=== PATIENT | female | born 1965 | race Caucasian/White ===

== ENCOUNTER 2025-06-29 20:08 | Emergency (ER) | payer MEDICAID ==
[~2025-06-29] VITALS: Ht 162.6 cm; Wt 72.7 kg
[2025-06-29 20:10] VITALS: BP 127/82; PULSE 88; O2SAT 95
--- NOTE | 2025-06-29 20:41 | RADIOLOGY REPORT ---
CLINICAL INDICATION: left ankle pain TECHNIQUE: ANKLECPLTDI ANKLE, COMPLETE(3VW MIN) Comparison: None FINDINGS/IMPRESSION: : Nondisplaced transverse fracture at the inferior tip of the lateral malleolus. Alignment is anatomic. Ankle mortise is congruent and talar dome intact.
--- NOTE | 2025-06-29 20:45 | Physician Documentation ---
History of Present Illness ~ Chief Complaint: Mechanical Fall Stated Complaint: FALL Time Seen by MD: 20:36 Primary Medical Doctor: [facility] This is a 59-year-old female who comes in for evaluation of left ankle pain and swelling in the right knee pain and swelling after she got tripped up by her dog. She had fallen onto her right knee, twisted left ankle, and a brace her right elbow. She reports an immediate onset sharp nonradiating pain in her left ankle, right knee, worse with a any range of motion and palpation. No particular palliating factors other than position of comfort. Did not attempt to treat it with a any medication. Denies head strike, denies blood thinners, denies loss of consciousness. Denies any concerns for tobacco, alcohol or illicit substances use Tetanus within 5 Years?: No (unk) Medication Reconciliation Allergies: Coded Allergies: Penicillins (Verified Allergy, Unknown, 06/29/25) lidocaine (Unverified Adverse Reaction, Unknown, extreme anxiety, 06/29/25) Past Medical History Past Medical History: Headache, Migraine, Chronic Back Pain Past Surgical History: orthopedic surgeries Other Past Family History: NONE REPORTED Alcohol Use: Occasionally Drug Use: none Review of Systems ROS 10 point review of systems was performed and unless noted above in HPI is negative for acute process/complaint. Physical Exam Vital Signs: Temperature: 97.2, Source: Temporal, Heart Rate: 88, Respiratory Rate: 16, BP: 127/82, Pulse Oximetry: 95, Weight: 72.700 Physical Exam Physical examination: GENERAL: Awake, alert, oriented, GCS 15, mild pain related distress, non-toxic appearing, answers questions, follows commands appropriately. Examined in bed 19 HEENT: Atraumatic, normocephalic, pupils equal, extraocular muscles intact Active gross movements, sclerae anicteric, mucus membranes moist, no stridor. NECK: Midline, no JVD CARDIOVASCULAR: Good skin perfusion without evidence of pallor, mottling. PULMONARY: Nonlabored, symmetric chest rise, no audible wheezing, no accessory muscle use, no respiratory distress, speaking in full sentences. GASTROINTESTINAL: Not distended. NEUROLOGIC: Lucid with normal mental status. Normal facial symmetry. Moves all extremities symmetrically and with purpose. No truncal ataxia. Speech is fluid without evidence of dysarthria or aphasia, no focal deficits appreciated. EXTREMITIES: Acute deformities Skin: warm, dry PSYCHIATRIC: Normal affect, normal insight, normal concentration. Focused exam: [There is abrasion to the right knee, no active bleeding. Left ankle was examined. There is significant lateral malleolus swelling, tenderness to palpation, range of motion limited by pain. Neurovascularly intact distally. Right knee was examined. There is tenderness to palpation over medial joint line, no crepitus, mild swelling, no bruising, neurovascularly intact distally.] Progress Results/Orders Results/Orders Orders - GEN BARRETT DO Ankle, Complete(3vw Min) (06/29/25 20:15) Knee 3 Vws (06/29/25 20:38) Completed Orders - GEN BARRETT DO Ankle, Complete(3vw Min) (06/29/25 20:15) Knee 3 Vws (06/29/25 20:38) Hydrocodone/Apap 5/325mg Tab ([place] 5/32 (06/29/25 20:40) Ketorolac Trometh 30mg/Ml Vial (Toradol (06/29/25 20:40) Medications Received in ER Medications (Trade) Dose Ordered Sig/Maira Route PRN Reason Start Time Stop Time Status Last Admin Dose Admin ([place] 5/325mg tablet) 1 tab ONCE ONCE PO 06/29/25 20:40 06/29/25 20:41 DC 06/29/25 21:02 1 TAB (Toradol inj. 30mg/ml) 30 mg ONCE ONCE IM 06/29/25 20:40 06/29/25 20:41 DC 06/29/25 21:01 30 MG Vital Signs 06/29/25 06/29/25 06/29/25 20:10 21:01 21:02 Temp 97.2 Pulse 88 Resp 16 16 16 B/P (MAP) 127/82 Pulse Ox 95 Medical Decision Making Additional information obtaine: N/A Findings Facility Status: ED Holds, [facility] process The plan was discussed with the patient, who demonstrates clear understanding of the plan and is in agreement with the plan unless otherwise noted in the chart. All questions have been answered, all concerns were addressed unless otherwise documented. I was available throughout their ED stay for frequent reassessment and questions. Differential Diagnoses (considered and possible or likely): [Ground level fall, acute traumatic pain, left ankle contusion versus sprain versus fracture versus dislocation, right knee contusion versus fracture versus dislocation versus patellar dislocation/fracture, right elbow contusion. Unlikely fracture or dislocation of right elbow as she has full range of motion.] ??Differential Diagnoses (considered and unlikely, not requiring evaluation currently): [Patient adamantly denies closed head injury] MDM Data Please see HPI for the following: Independent Historians and external Records Review. Historian: [Patient] Independent Historians: ?[None] Medication Management: [Reviewed medication list] Social History and determinants: [Reviewed] Please see the body of the note for the following: Any independent interpretations of ECG, imaging studies. All vitals signs/haemodynamics, ordered tests were independently reviewed and interpreted by myself. Nursing triage complaint and vitals reviewed, additional nursing notes were reviewed as available and I agree unless otherwise noted or documented in contradiction in the chart Vital Signs: Independently reviewed Labs: Independently interpreted Imaging: Independently interpreted Old Medical Records: Independently reviewed, see [facility] for relevant summary and information Additionally notably showing: [Hemodynamically stable. X-ray shows lateral malleolar fracture, nondisplaced. Preserved with the alignment. A knee x-ray shows no acute fracture.] Tests considered but not ordered include: [Hematologic workup has been considered but does not appear to be necessary given mechanical nature of the injury.] Social Determinants of Health Impact: Patient was evaluated in [facility] [place] healthcare due to below par ratio of patient to medical providers. [] Comorbid Conditions Impacting Present Evaluation and Care/Treatment: [None rep orted by the patient] Management Discussions with other Healthcare Providers: [None] Treatment and Disposition Medication Management (Given or considered): [Pain management]. See EMR for details Consideration for Hospitalization/Escalation/Deescalation of Care: Admission for observation has been considered, [however the patient is able to tolerate p.o., their symptoms are controlled, they are able to rely on oral medications, and their chief complaint/diagnosis can be managed on outpatient basis.] ?ED Course:?[The patient was placed in a splint] ?Shared decision making:?[Patient is hemodynamically stable for discharge home with follow with their primary care provider. [ ] Specific and cautious return precautions provided and discussed with full understanding. Any incidental findings were also discussed and follow up recommendations given. [] All questions answered. Patient/family were able to verbalize back return precautions. Patient/family agree to plan. Copies of imaging and laboratory studies were provided.] Code status:?FULL Please see the full Electronic Medical Record for full details of nursing documentation, medications list, other records of complete past medical history and conditions, vital signs, laboratory studies, and any radiologic study interpretations by radiologists. Portions of this note were completed using [employer] dictation software and as a result there may exist minor errors in spelling. I have reviewed elements of past family and social history and agree as included in note. Differential Dx:Considerations: Include: Fracture(s), Abrasion(s), Contusion(s); Unlikely: Closed head injury, Cardiac injury, Intraabdominal injury, Pneumothorax, Cerebral contusion, Pulmonary contusion, Spine injury, Tracheal injury, Urological injury, Vascular injury, Foreign body(s), Hematoma(s), Laceration(s), Encephalopathy Departure Disposition: HOME / SELF CARE / HOMELESS Impression: Primary Impression: Ground-level fall Additional Impressions: Acute traumatic pain Contusion of right knee Closed left ankle fracture Abrasion of right elbow Condition: Improved Discharge Instructions: Ankle Fracture Additional Instructions: Please follow-up with the orthopedic surgeon of your choice. Referrals: NO PRIMARY CARE PROVIDER (PCP) Prescriptions Naloxone HCl (Narcan) 4 Mg/Actuation [place] 1 SPRAYS BOTHNARES ONCE for 14 Days, #1 EA 0 Refills Use for opioid overdose/respiratory depression only. Do not use routinely Prov: GEN BARRETT DO 06/29/25 ONDANSETRON ODT 4mg tablet (ONDANSETRON ODT) 4 Mg Tab.rapdis 1 TAB PO Q6H PRN PRN for nausea/vomiting for 4 Days, #16 TAB 0 Refills Prov: GEN BARRETT DO 06/29/25 Naproxen (Naproxen) 375 Mg Tablet 1 TAB PO Q12H for pain for 30 Days, #60 TAB 0 Refills with food Prov: GEN BARRETT DO 06/29/25 Hydrocodone Bit/Acetaminophen 5/325 MG ([place] 5/325 MG) 5 Mg/325 Mg Tablet 1 TAB PO Q6H PRN for pain for 7 Days, #28 TAB Prov: GEN BARRETT DO 06/29/25 Education Educated: Patient Educated regarding: diagnosis, treatment, prognosis, need for follow up Signature Scribe Signature: No scribe Attestation: Date: Jun 29, 2025 Time: 20:44 This note accurately reflects clinical decisions, work performed by myself, DO NENA Vega NICHOLAS M DO Jun 29, 2025 20:45
[2025-06-29] MEDS: ketorolac trometh 30MG/ML vial 30 MG/ML VIAL IM ONE (21:01)
[2025-06-29 21:02] VITALS: RESP 16
[2025-06-29] MEDS: HYDROcodone/acetaminophen 5mg/325mg tablet PO ONE (21:02)
--- NOTE | 2025-06-29 21:15 | RADIOLOGY REPORT ---
EXAM: DI KNEE 3 VWS INDICATION: fall, pain TECHNIQUE: 3 views of the right knee COMPARISON: None FINDINGS/IMPRESSION: No radiographic evidence of an acute osseous abnormality. There is no acute fracture, osseous malalignment, or aggressive focal osseous lesion. At least moderate lateral weight-bearing compartment joint space loss. Small suprapatellar knee joint effusion. Diffusely decreased bone mineral density.
[2025-06-29] MEDS ORDERED: HYDR-3965 PO (21:36)
[2025-06-29] MEDS ORDERED: ONDA-243 PO (21:36)
[2025-06-29] MEDS ORDERED: NALO4SPR BOTHNARES (21:36)
[2025-06-29] MEDS ORDERED: NAPR-1166 PO (21:36)
[2025-06-29 21:38] VITALS: TEMP 97.2
== END 2025-06-29 21:47 | disposition home or self-care (01) ==
LOC: ER 20:09
DX: S82.892A Other fracture of left lower leg, initial encounter for closed fracture (principal); S80.01XA Contusion of right knee, initial encounter; S50.311A Abrasion of right elbow, initial encounter; G89.11 Acute pain due to trauma; G89.29 Other chronic pain; G43.909 Migraine, unspecified, not intractable, without status migrainosus; Z88.0 Allergy status to penicillin; Z88.8 Allergy status to other drugs, medicaments and biological substances; Z98.890 Other specified postprocedural states; Z72.89 Other problems related to lifestyle; W18.39XA Other fall on same level, initial encounter; Y93.89 Activity, other specified; Y92.89 Other specified places as the place of occurrence of the external cause; Y99.8 Other external cause status
CPT/HCPCS: 29515; 73562; 73610; 96372; 99284; J1885; A6446; A6449

== ENCOUNTER 2025-07-04 13:34 | Emergency (ER) | payer MEDICAID ==
[~2025-07-04] VITALS: Ht 162.6 cm; Wt 72.7 kg
[~2025-07-04 13:34] MED LIST: HYDR-3965 PO; NALO4SPR BOTHNARES; NAPR-1166 PO; ONDA-243 PO
[2025-07-04 13:39] VITALS: BP 157/94; PULSE 70; RESP 18; TEMP 97; O2SAT 97
--- NOTE | 2025-07-04 14:04 | RADIOLOGY REPORT ---
EXAM: DI ELBOW, COMPLETE (3VW MIN) REASON FOR EXAM: RIGHT ELBOW PAIN TECHNIQUE: AP, lateral, and oblique views of the right elbow are submitted for review. COMPARISON: None FINDINGS: The bones demonstrate normal mineralization. There is no acute fracture or dislocation. There is no elbow effusion. The soft tissues are grossly unremarkable. IMPRESSION: No acute fracture or dislocation.
--- NOTE | 2025-07-04 15:39 | Physician Documentation ---
History of Present Illness ~ Chief Complaint: Elbow pain Stated Complaint: ELBOW AND FOOT PAIN Time Seen by MD: 14:02 [facility] HPI 59-year-old female who is seen in the emergency department status post mechanical fall several days ago where she was noted to have a closed distal fibula fracture. Splinted at that time. Splint is clean dry and intact. Patient has been doing some touchdown weight. Who concerns today is that her right elbow is not x-rayed. She has a small abrasion over the elbow with no restricted range of motion. No pain with pronation or supination flexion and/or extension. There was no erythema or fluctuance at the elbow. She is grossly neurologically intact radial median ulnar nerve. Tetanus within 5 years: No (unk) Medication Reconciliation Allergies: Coded Allergies: Penicillins (Verified Allergy, Unknown, 07/04/25) lidocaine (Unverified Adverse Reaction, Unknown, extreme anxiety, 07/04/25) Scheduled Naloxone HCl (Narcan), 1 SPRAYS BOTHNARES ONCE Naproxen (Naproxen), 1 TAB PO Q12H Scheduled PRN Hydrocodone Bit/Acetaminophen 5/325 MG ([place] 5/325 MG), 1 TAB PO Q6H PRN for pain ONDANSETRON ODT 4mg tablet (Ondansetron Odt), 1 TAB PO Q6H PRN PRN for [place] sea/vomiting Past Medical History Past Medical History: Headache, Migraine, Chronic Back Pain Past Surgical History: orthopedic surgeries Other Past Family History: NONE REPORTED Alcohol Use: Occasionally Drug Use: none Physical Exam Vital Signs: RN Vital Signs have been reviewed: Yes, Temperature: 97.0, Source: Temporal, Heart Rate: 70, Respiratory Rate: 18, BP: 157/94, Pulse Oximetry: 97, Weight: 72.730 General Appearance: alert, WD/WN, mild distress EENT: PERRL/EOMI Neck: normal inspection Respiratory: lungs clear Chest: no accessory muscle use Gastrointestinal: non-tender Back: normal inspection Shoulder Left lower extremity with a short-leg cast is clean dry and intact excellent distal cap refill Elbow/Forearm: bone tenderness, soft tissue tenderness Wrist: normal inspection Digit: normal inspection Digit Strength: normal Nail: normal inspection Nail Bed: normal inspection Skin: normal color Neurologic: oriented x4 Psychiatric: normal mood/affect Progress Results/Orders Results/Orders Orders - COLBY CALVIN PAC Ankle, Complete(3vw Min) (07/04/25 ) Completed Orders - COLBY CALVIN PAC Ankle, Complete(3vw Min) (07/04/25 ) Vital Signs 07/04/25 13:39 Temp 97.0 Pulse 70 Resp 18 B/P (MAP) 157/94 Pulse Ox 97 Medical Decision Making Additional information obtaine: family Findings Interval x-rays of the left distal fibula the unremarkable. Splint remains clean dry and intact. X-ray imaging of the right upper extremity shows no e ffusion and/or fracture or dislocation. Reassurance provided the patient. She will keep your scheduled orthopedic follow up in July 10. She has been encouraged to be nonweightbearing with crutch use. General Diff Dx:Considerations: Include: Abrasion, Contusion, Fracture, Hematoma Shoulder Diff Dx:Consideration: Include: Other Elbow Diff Dx:Considerations: Include: Arthritis, Contustion, DJD, Sprain, Other Wrist Diff Dx:Considerations: Include: Other Hand Diff Dx:Considerations: Include: Other (Noncontributory) Finger Diff Dx:Considerations: Include: Other (Noncontributory) Departure Disposition: HOME / SELF CARE / HOMELESS Impression: Primary Impression: Injury of right elbow Qualified Codes: S59.901A - Unspecified injury of right elbow, initial encounter Additional Impression: Fracture of distal fibula Qualified Codes: S82.832D - Other fracture of upper and lower end of left fibula, subsequent encounter for closed fracture with routine healing Discharge Instructions: Elbow Injury Additional Instructions: X-rays of the elbow are reassuring for no fracture or dislocation. Interval x- ray imaging of your left ankle he is without change. Please keep your splint clean and dry be nonweightbearing. Please keep your scheduled follow up appointment with the orthopedist. Thank you for visiting emergency department [facility]. Referrals: NO PRIMARY CARE PROVIDER (PCP) Education Educated: Patient, Family Educated regarding: diagnosis, treatment, prognosis, need for follow up Signature Scribe Signature: . Attestation: COLBY BUI PAC Jul 04, 2025 15:39
--- NOTE | 2025-07-04 15:46 | RADIOLOGY REPORT ---
CLINICAL INDICATION: Interval X ray TECHNIQUE: 3 radiographic views of the left ankle were obtained. Comparison: DI ELBOW, COMPLETE (3VW MIN) on DOS: 07/04/25, DI ANKLE, COMPLETE(3VW MIN) on DOS: 06/29/25 FINDINGS/IMPRESSION: Overlying cast material limits evaluation of the bony and soft tissue fine details. Redemonstration of acute nondisplaced fracture of the distal lateral malleolus. No dislocation.
== END 2025-07-04 15:52 | disposition home or self-care (01) ==
LOC: ER 13:36
DX: S82.832A Other fracture of upper and lower end of left fibula, initial encounter for closed fracture (principal); G43.909 Migraine, unspecified, not intractable, without status migrainosus; G89.29 Other chronic pain; Z88.0 Allergy status to penicillin; Z88.8 Allergy status to other drugs, medicaments and biological substances; Z79.899 Other long term (current) drug therapy; Z72.89 Other problems related to lifestyle; Z98.890 Other specified postprocedural states; W18.30XA Fall on same level, unspecified, initial encounter; Y93.89 Activity, other specified; Y92.89 Other specified places as the place of occurrence of the external cause; Y99.8 Other external cause status
CPT/HCPCS: 73080; 73610; 99284